=== PATIENT | male | born 1990 | race Caucasian/White ===

== ENCOUNTER 2018-04-22 11:13 | Emergency (ER) | payer BC ==
[2018-04-22 12:12] LABS: Absolute Lymphocytes (CBC) 1.8 K/uL (0.7-4.9); Absolute Monocytes 0.8 K/uL (0.1-1.3); Absolute Neutrophil 8.6 K/uL (1.8-8.0); Basophils % 0.6 % (0-1.3); Eosinophils % 1.6 % (0-4.4); Hematocrit 46.1 % (39.6-49.0); Lymphocytes % 15.7 % (15.3-44.8); MCH 31.7 pg (27.0-35.0); MCV 91.4 fL (80-100); MPV 9.4 fL (7.6-11.3); Monocytes % 7.2 % (3.3-12.3); RBC Red Blood Cell Count 5.04 M/uL (4.33-5.43)
[2018-04-22 12:34] LABS: Albumin 4.3 g/dL (3.4-5.0); Bilirubin Direct 0.1 mg/dL (0-0.2); Bilirubin Total 0.8 mg/dL (0.2-1.0); Protein, Total 7.4 g/dL (6.4-8.2)
--- NOTE | 2018-04-22 12:35 | RAD REPORT ---
EXAM DESCRIPTION: CT - Stone Protocol - 04/22/2018 12:19 pm CLINICAL HISTORY: Flank pain. ABD PAIN COMPARISON: None TECHNIQUE: Axial images were obtained without oral or IV contrast. Lack of contrast limits solid org an and vascular assessment. The [id number] spans the entirety of the system partially obscuring uppermost abdomen and lung bases. Coronal reformatted images were obtained and reviewed. All CT scans are performed using dose optimization technique as appropriate and may include automated exposure control or mA/KV adjustment according to patient size. FINDINGS: The lower lung mccabe are clear. Imaged portions of the liver and spleen show no suspicious findings on non-contrast imaging. The panc reas and adrenal glands are normal. No pathologic lymphadenopathy in the abdomen or pelvis. No urinary tract stones or obstructive uropathy. No bowel obstruction, free air, free fluid or abscess. Normal appendix noted. Mild lower lumbar spondylosis. Small fat containing left inguinal hernia. IMPRESSION: No urinary tract stones or obstructive uropathy.
[2018-04-22 13:29] LABS: Urine Bacteria <20 /HPF (NONE SEEN); Urine RBC <5 /HPF (NONE SEEN)
[2018-04-22 13:30] LABS: Urine Amorphous Sediment 3+ /HPF (NONE SEEN); Urine Culture Reflex Order NOT NEEDED
--- NOTE | 2018-04-22 13:42 | EDPHYS ---
Physician Documentation [facility] Name: Jozef Burnett Age: 28 yrs Sex: Male : 1990 Arrival Date: 04/22/2018 Time: 11:19 Bed 18 Private MD: None, None ED Physician Priyank Fay HPI: 04/22 11:50 This 28 yrs old Male presents to ER via Ambulatory with complaints of jr8 Abdominal Pain/dysuria. 11:50 The patient presents with abdominal pain suprapubic region. Onset: The symptoms/episode jr8 began/occurred gradually, 2 day(s) ago. The symptoms do not radiate. Associated signs and symptoms: none. The symptoms are described as steady, pressure. Modifying factors: The symptoms are alleviated by nothing, the symptoms are aggravated by urinating. Severity of pain: At its worst the pain was mild in the emergency department the pain is unchanged. The patient has not experienced similar symptoms in the past. The patient has not recently seen a physician. Patient stated that he has had difficulty with urination for about 1 week. Now has suprapubic pain/pressure. Denies discharge . Historical: - Allergies: 11:26 No Known Allergies; aj - Home Meds: 11:26 None [Active]; aj - PMHx: 11:26 None; aj - PSHx: 11:26 Hernia repair; aj - Immunization history:: Adult Immunizations up to date. - Social history:: Smoking status: Patient uses tobacco products, smokes one pack cigarettes per day. - Ebola Screening: : Patient negative for fever greater than or equal to 101.5 degrees Fahrenheit, and additional compatible Ebola Virus Disease symptoms Patient denies exposure to infectious person Patient denies travel to an Ebola-affected area in the 21 days before illness onset No symptoms or risks identified at this time. ROS: 11:50 Eyes: Negative for injury, pain, redness, and discharge, ENT: Negative for injury, jr8 pain, and discharge, Neck: Negative for injury, pain, and swelling, Cardiovascular: Negative for chest pain, palpitations, and edema, Respiratory: Negative for shortness of breath, cough, wheezing, and pleuritic chest pain, Back: Negative for injury and pain, MS/Extremity: Negative for injury and deformity, Skin: Negative for injury, rash, and discoloration, Neuro: Negative for headache, weakness, numbness, tingling, and seizure. 11:50 Abdomen/GI: Positive for abdominal pain, Negative for nausea, vomiting, and diarrhea, abdominal distension, anorexia, dysphagia, hematemesis, black/tarry stool, rectal pain, rectal bleeding, bowel incontinence, flatulence. 11:50 : Positive for urinary symptoms, burning with urination, difficulty urinating, Negative for penile discharge, penile pain, testicular pain Exam: 11:50 Eyes: Pupils equal round and reactive to light, extra-ocular motions intact. Lids and jr8 lashes normal. Conjunctiva and sclera are non-icteric and not injected. Cornea within normal limits. Periorbital areas with no swelling, redness, or edema. ENT: Nares patent. No nasal discharge, no septal abnormalities noted. Tympanic membranes are normal and external auditory canals are clear. Oropharynx with no redness, swelling, or masses, exudates, or evidence of obstruction, uvula midline. Mucous membranes moist. Neck: Trachea midline, no thyromegaly or masses palpated, and no cervical lymphadenopathy. Supple, full range of motion without nuchal rigidity, or vertebral point tenderness. No Meningismus. Cardiovascular: Regular rate and rhythm with a normal S1 and S2. No gallops, murmurs, or rubs. Normal PMI, no JVD. No pulse deficits. Respiratory: Lungs have equal breath sounds bilaterally, clear to auscultation and percussion. No rales, rhonchi or wheezes noted. No increased work of breathing, no retractions or nasal flaring. Back: No spinal tenderness. No costovertebral tenderness. Full range of motion. Skin: Warm, dry with normal turgor. Normal color with no rashes, no lesions, and no evidence of cellulitis. MS/ Extremity: Pulses equal, no cyanosis. Neurovascular intact. Full, normal range of motion. Neuro: Awake and alert, GCS 15, oriented to person, place, time, and situation. Cranial nerves II-XII grossly intact. Motor strength 5/5 in all extremities. Sensory grossly intact. Cerebellar exam normal. Normal gait. 11:50 Abdomen/GI: Inspection: abdomen appears normal, Bowel sounds: active, all quadrants, Palpation: soft, in all quadrants, mild abdominal tenderness, in the suprapubic area, mass, is not appreciated, rebound tenderness, is not appreciated, voluntary guarding, is not appreciated, involuntary guarding, is not appreciated, no appreciated organomegaly, Indicators: McBurney's point is not tender, Paz's sign is negative, Rovsing's sign is negative, Liver: no appreciated palpable abnormalities, tenderness, is not appreciated. 11:50 : Male external genitalia: normal, Bladder: tenderness, that is mild. Vital Signs: 11:26 BP 142 / 72; Pulse 89; Resp 16; Temp 98.8; Pulse Ox 98% on R/A; Weight 80.74 kg; Height aj 5 ft. 8 in. (172.72 cm); 12:28 BP 140 / 75; Pulse 88; Resp 18; Pulse Ox 100% on R/A; hj 11:26 Body Mass Index 27.06 (80.74 kg, 172.72 cm) aj MDM: 11:34 Patient medically screened. jr8 13:41 Data reviewed: vital signs, nurses notes, lab test result(s), radiologic studies, CT jr8 scan, and as a result, I will discharge patient. Data interpreted: Pulse oximetry: on room air is 100 %. Interpretation: normal. Counseling: I had a detailed discussion with the patient and/or guardian regarding: the historical points, exam findings, and any diagnostic results supporting the discharge/admit diagnosis, lab results, radiology results, the need for outpatient follow up, a family practitioner, to return to the emergency department if symptoms worsen or persist or if there are any questions or concerns that arise at home. 04/22 11:49 Order name: Basic Metabolic Panel; Complete Time: 12:34 04/22 11:49 Order name: CBC with Diff; Complete Time: 12:16 04/22 11:49 Order name: Creatinine for Radiology; Complete Time: 12:33 04/22 11:49 Order name: Hepatic Function; Complete Time: 12:34 04/22 11:49 Order name: Urine Microscopic Only; Complete Time: 13:40 04/22 11:50 Order name: CPK; Complete Time: 12:34 04/22 11:49 Order name: IV Saline Lock; Complete Time: 11:59 04/22 11:49 Order name: Labs collected and sent; Complete Time: 11:59 jr8 07/06 11:49 Order name: Urine Dipstick-Ancillary (obtain specimen); Complete Time: 13:39 jr8 04/22 11:49 Order name: CT Stone Protocol; Complete Time: 12:36 jr8 04/22 13:05 Order name: Urine Dipstick--Ancillary (enter results) ag Administered Medications: No medications were administered Disposition: 15:29 Co-signature as Attending Physician, Priyank Fay MD. rn Disposition: 04/22/18 13:41 Discharged to Home. Impression: Dysuria. - Condition is Stable. - Discharge Instructions: Dysuria. - Prescriptions for Doxycycline Hyclate 100 mg Oral Tablet - take 1 tablet by ORAL route every 12 hours for 10 days; 20 tablet. - Medication Reconciliation Form, Thank You Letter, Antibiotic Education, Prescription Opioid Use, Work release form form. - Follow up: Mayda Watson MD; When: 2 - 3 days; Reason: Recheck today's complaints, Continuance of care, Re-evaluation by your physician. - Problem is new. - Symptoms have improved. Signatures: Dispatcher [employer] EDWI Dayana Vanegas, RN Priyank Aguilar MD MD rn Roszak, Josh, PA PA jr8 Dameon Sal RN RN mg2 Corrections: (The following items were deleted from the chart) 13:56 13:41 04/22/2018 13:41 Discharged to Home. Impression: Dysuria. Condition is Stable. mg2 Forms are Medication Reconciliation Form, Thank You Letter, Antibiotic Education, Prescription Opioid Use. Follow up: Mayda Watson; When: 2 - 3 days; Reason: Recheck today's complaints, Continuance of care, Re-evaluation by your physician. Problem is new. Symptoms have improved. jr8
--- NOTE | 2018-04-22 13:42 | ER ---
Nurse's Notes [facility] Name: Jozef Burnett Age: 28 yrs Sex: Male : 1990 Arrival Date: 04/22/2018 Time: 11:19 Bed 18 Private MD: None, None Diagnosis: Dysuria Presentation: 04/22 11:25 Presenting complaint: Patient states: Pelvic pain that was worse last night with aj urinary frequency. Patient reports possible blood in urine a few days ago. Transition of care: patient was not received from another setting of care. Onset of symptoms was April 22, 2018. Risk Assessment: Do you want to hurt yourself or someone else? Patient reports no desire to harm self or others. Initial Sepsis Screen: Does the patient meet any 2 criteria? No. Patient's initial sepsis screen is negative. Does the patient have a suspected source of infection? No. Patient's initial sepsis screen is negative. Care prior to arrival: None. 11:25 Method Of Arrival: Ambulatory aj 11:25 Acuity: TAMMY 3 aj Triage Assessment: 11:26 General: Appears in no apparent distress. comfortable, Behavior is calm, cooperative, aj appropriate for age. Pain: Complains of pain in pelvis. Neuro: Level of Consciousness is awake, alert, obeys commands, Oriented to person, place, time, situation, Appropriate for age. Respiratory: Airway is patent Respiratory effort is even, unlabored, Respiratory pattern is regular, symmetrical. GI: No signs and/or symptoms were reported involving the gastrointestinal system. : Reports pain in suprapubic area. Derm: Skin is intact, is healthy with good turgor, Skin is pink, warm \T\ dry. normal. Historical: - Allergies: 11:26 No Known Allergies; aj - Home Meds: 11:26 None [Active]; aj - PMHx: 11: None; aj - PSHx: 11:26 Hernia repair; aj - Immunization history:: Adult Immunizations up to date. - Social history:: Smoking status: Patient uses tobacco products, smokes one pack cigarettes per day. - Ebola Screening: : Patient negative for fever greater than or equal to 101.5 degrees Fahrenheit, and additional compatible Ebola Virus Disease symptoms Patient denies exposure to infectious person Patient denies travel to an Ebola-affected area in the 21 days before illness onset No symptoms or risks identified at this time. Screenin:43 Abuse screen: Denies threats or abuse. Denies injuries from another. Nutritional hj screening: No deficits noted. Tuberculosis screening: No symptoms or risk factors identified. Fall Risk None identified. Assessment: 11:43 GI: Bowel sounds present X 4 quads. Abd is soft and non tender. hj 12:24 Reassessment: Patient and/or family updated on plan of care and expected duration. Pain hj level reassessed. Patient is alert, oriented x 3, equal unlabored respirations, skin warm/dry/pink. back from CT;. 13:27 Reassessment: Patient appears in no apparent distress at this time. Patient and/or mg2 family updated on plan of care and expected duration. Pain level reassessed. Patient is alert, oriented x 3, equal unlabored respirations, skin warm/dry/pink. Vital Signs: 11:26 BP 142 / 72; Pulse 89; Resp 16; Temp 98.8; Pulse Ox 98% on R/A; Weight 80.74 kg; Height aj 5 ft. 8 in. (172.72 cm); 12:28 BP 140 / 75; Pulse 88; Resp 18; Pulse Ox 100% on R/A; hj 11:26 Body Mass Index 27.06 (80.74 kg, 172.72 cm) ED Course: 11:19 Patient arrived in ED. mr 11:20 None, None is Private Physician. mr 11:26 Triage completed. aj 11:26 Arm band placed on right wrist. Patient placed in an exam room. aj 11:34 [facility]eron [facility]. jr8 11:34 Priyank Fay MD is Attending Physician. jr8 11:42 Jackosn Torres, GERI is Primary Nurse. hj 11:43 Patient has correct armband on for positive identification. Placed in gown. Bed in low hj position. Side rails up X 1. Adult w/ patient. 11:57 Initial lab(s) drawn, by me, sent to lab. Inserted saline lock: 22 gauge in right hj antecubital area, using aseptic technique. Blood collected. 12:19 CT Stone Protocol In Process Unspecified. EDMS 13:41 Mayda Watson MD is Referral Physician. jr8 13:56 No provider procedures requiring assistance completed. IV discontinued, intact, mg2 bleeding controlled, No redness/swelling at site. Pressure dressing applied. Administered Medications: No medications were administered Outcome: 13:41 Discharge ordered by . katia 13:55 Discharged to home ambulatory. mg2 13:55 Condition: stable 13:55 Discharge instructions given to patient, Instructed on discharge instructions, follow up and referral plans. medication usage, Demonstrated understanding of instructions, follow-up care, medications, Prescriptions given X 1. 13:56 Patient left the ED. mg2 Signatures: Dispatcher [employer] EDDayana Epstein, Blessing Betts RN mr Osm[place], Victor Manuel, RICH VILLANUEVA jr8 Jackson Torres RN RN hj Gardose, Michele, RN RN mg2
[2018-04-22 14:01] VITALS: TEMP 98.8
[2018-04-22 14:02] VITALS: BP 140/75; O2SAT 100
[2018-04-22 15:50] LABS: Urine Blood TRACE (NEG); Urine Glucose NEGATIVE (NEG); Urine Protein NEGATIVE (NEG); Urine pH 8.5 (5.0-7.0)
== END 2018-04-22 13:56 | disposition home or self-care (01) ==
LOC: ER 11:13
DX: R30.0 Dysuria (principal); F17.210 Nicotine dependence, cigarettes, uncomplicated
CPT/HCPCS: 36415; 74176; 76377; 80048; 80076; 81003; 81015; 82550; 85025; 99284

== ENCOUNTER 2020-12-12 16:08 | Day surgery (SDC) | payer BC ==
[2020-12-12] MEDS ORDERED: Ringers Lactate 1,000 ML IV ONE (16:58)
[2020-12-12] MEDS ORDERED: LIDOCAINE 2% MPF 5 ML VIAL ONE (18:01)
[2020-12-12] MEDS ORDERED: propofoL 200 MG/20 ML VIAL IV ONE (18:01)
[2020-12-12] MEDS: FENTANYL CITR 100 MCG/2 ML ONE ×2 (18:14→18:19)
[2020-12-12 18:42] VITALS: BP 123/71; TEMP 97.3; O2SAT 97
--- NOTE | 2020-12-25 10:31 | OP ---
Date of Procedure: 12/12/2020 Surgeon: Juan Miguel Goodwin DDS, MD Water Mechanic: Staff. Preoperative Diagnosis: Dislocation of the right and left temporomandibular joints resulting in an o pen lock of the mandible. Postoperative Diagnosis: Dislocation of the right and left temporomandibular joints resulting in an open lock of the mandible. Procedure: Reduction of the right and left temporomandibular joint dislocations. Estimated Blood Loss: None. Specimen: None. Anesthesia: Monitored anesthesia care. Drains: None. Fluids: 200 cc LR. Complications: None. Indications: The patient is a 30-year-old male, who had teeth numbers 17, 18, 31, and 32 extracted u nder IV sedation yesterday by Dr. Sanket Bruno at [facility]. During the procedure, the patie nt's jaw became locked open and he was unable to close his jaw during the duration of the procedure. Dr. Bruno attempted to reduce the TMJs, but was unsuccessful. He prescribed a muscle relaxant and T ylenol No.3 for the patient's discomfort. He was discharged home. The patient has been unable to cl ose his mouth or reduced the open lock over the past 24 hours. Procedure In Detail: The patient was taken to the operating room and placed on the table in the supi ne position. IV anesthesia was begun and slowly titrated. Once the patient reached the deep level o f sedation, I was able to manually manipulate the mandible and downward in posterior position reducin g both the right and left temporomandibular joints. Once the jaw was closed, the occlusion was check ed. The anterior lesion appeared to sitting properly. A Riddle bandage was created using 4-inch Cob an dressing. This was done to prevent the patient from opening the mandible and recreating the open lock. The patient was awakened from the IV anesthetic. He was transported to the recovery room in s table and satisfactory condition. There were no sponges and no needles used, and there were no compl ications. RCF/MODL Voice ID: [id number] Report ID: [id number]
== END 2020-12-12 18:55 | disposition home or self-care (01) ==
LOC: OR 16:08
PROVIDERS: ATTEND Oral & Maxillofacial Surgery
PROC: 0RSCXZZ Reposition Right Temporomandibular Joint, External Approach (ICD-10-PCS; 2020-12-12)
PROC: 0RSDXZZ Reposition Left Temporomandibular Joint, External Approach (ICD-10-PCS; principal; 2020-12-12 17:00)
DX: M26.603 Bilateral temporomandibular joint disorder, unspecified (principal); Z20.822 Contact with and (suspected) exposure to COVID-19
CPT/HCPCS: 21480; U0003; J2704; J3010; J7120